=== PATIENT | female | born 1975 | race Caucasian/White ===

== ENCOUNTER 2022-07-02 18:07 | Emergency (ER) | payer OTHER ==
[~2022-07-02] VITALS: Ht 165.1 cm; Wt 92.2 kg
[2022-07-02 19:40] VITALS: BP 116/75
[2022-07-02] MEDS ORDERED: ACET-2247 PO (20:33)
== END 2022-07-02 21:04 | disposition home or self-care (01) ==
LOC: EDH 18:07
DX: S40.012A Contusion of left shoulder, initial encounter (principal); S80.02XA Contusion of left knee, initial encounter; E78.00 Pure hypercholesterolemia, unspecified; I10 Essential (primary) hypertension; Z86.73 Personal history of transient ischemic attack (TIA), and cerebral infarction without residual deficits; Z90.49 Acquired absence of other specified parts of digestive tract; Z88.6 Allergy status to analgesic agent; W01.0XXA Fall on same level from slipping, tripping and stumbling without subsequent striking against object, initial encounter; Y93.89 Activity, other specified; Y92.89 Other specified places as the place of occurrence of the external cause; Y99.8 Other external cause status
CPT/HCPCS: 73030; 73521

== ENCOUNTER 2023-05-20 23:03 | Emergency (ER) | payer OTHER ==
[~2023-05-20] VITALS: Ht 165.1 cm; Wt 89.4 kg
[~2023-05-20 23:03] MED LIST: ACET-2247 PO
[2023-05-20] MEDS ORDERED: DIAZEPAM 5 MG/ML 2 ML SYG IVP ONE (23:30)
[2023-05-21] MEDS ORDERED: CYCL10TA16 PO (00:59)
[2023-05-21 01:19] VITALS: BP 123/71; PULSE 81; RESP 16; O2SAT 97
== END 2023-05-21 02:59 | disposition home or self-care (01) ==
LOC: EDH 23:03
DX: S33.5XXA Sprain of ligaments of lumbar spine, initial encounter (principal); S23.3XXA Sprain of ligaments of thoracic spine, initial encounter; I10 Essential (primary) hypertension; Z86.73 Personal history of transient ischemic attack (TIA), and cerebral infarction without residual deficits; Z88.6 Allergy status to analgesic agent; Z90.49 Acquired absence of other specified parts of digestive tract; W18.39XA Other fall on same level, initial encounter; Y93.89 Activity, other specified; Y92.89 Other specified places as the place of occurrence of the external cause; Y99.8 Other external cause status
CPT/HCPCS: 99284; 70450; 96374; 71045; 72100; 72170; 72070; 72125; J3360

== ENCOUNTER → 2023-08-26 | Outpatient (CLI) | payer OTHER ==
[~2023-08-26] MED LIST changes: +CYCL10TA16 PO
[2023-08-26 12:30] LABS: CREATININE 0.9 mg/dL (0.5-1.5); POTASSIUM 4.2 mmol/L (3.5-5.1)
== END | disposition home or self-care (01) ==
LOC: LAB 11:50
PROVIDERS: ATTEND Internal Medicine Cardiovascular Disease
DX: I10 Essential (primary) hypertension (principal)
CPT/HCPCS: 36415; 80048

== ENCOUNTER → 2023-08-30 | Outpatient (CLI) | payer OTHER ==
[~2023-08-30] MED LIST changes: +IOHEXOL 350 MG/ML 100ML INFUS..BTL IV ONE; +METOPROLOL TARTRATE 1 MG/ML 5ML VIAL IV ONE
== END | disposition home or self-care (01) ==
LOC: RAH 10:48
PROVIDERS: ATTEND Internal Medicine Cardiovascular Disease
DX: I25.10 Atherosclerotic heart disease of native coronary artery without angina pectoris (principal); I25.9 Chronic ischemic heart disease, unspecified; I50.9 Heart failure, unspecified; M47.815 Spondylosis without myelopathy or radiculopathy, thoracolumbar region
CPT/HCPCS: 93306; 75574; J3490; Q9967

== ENCOUNTER → 2024-11-13 | Outpatient (CLI) | payer OTHER ==
[~2024-11-13] MED LIST changes: -IOHEXOL 350 MG/ML 100ML INFUS..BTL IV ONE; -METOPROLOL TARTRATE 1 MG/ML 5ML VIAL IV ONE
--- NOTE | 2024-11-13 12:54 | HMCIMG ---
KNEE/PATELLA 1-2VWS RT HISTORY: Pain COMPARISON: None TECHNIQUE: 2 images of right knee were obtained. FINDINGS: There is no acute displaced fracture or dislocation. Degenerative changes are seen. IMPRESSION: 1. Findings as described above.
== END | disposition home or self-care (01) ==
LOC: RAH 11:49
DX: M17.11 Unilateral primary osteoarthritis, right knee (principal); M25.561 Pain in right knee
CPT/HCPCS: 73560

== ENCOUNTER → 2024-12-29 | Outpatient (CLI) | payer OTHER ==
--- NOTE | 2024-12-29 09:23 | HMCIMG ---
Exam Type: US ABDOMINAL RUQ\E\LTD Clinical Information: ABN FINDINGS OF BLOOD CHEMISTRY Comparison: None Findings: The liver shows fatty infiltration and is enlarged, measuring 16.8 cm and is otherwise unremarkable. Doppler evaluation shows patent portal and hepatic veins. The gallbladder is surgically absent. No bile duct dilatation is noted. The common bile duct measures 5 mm. The right kidney measures 10.9 x 5.3 cm- it shows no hydronephrosis or calculi, masses or other abnormalities. The pancreas is suboptimally visualized. The aorta and inferior vena cava show no significant abnormalities. IMPRESSION: FATTY LIVER INFILTRATION AND HEPATOMEGALY. Status post cholecystectomy. OTHERWISE NORMAL RIGHT UPPER QUADRANT ABDOMINAL ULTRASOUND.
== END | disposition home or self-care (01) ==
LOC: RAH 07:07
DX: K76.0 Fatty (change of) liver, not elsewhere classified (principal); R16.0 Hepatomegaly, not elsewhere classified; R94.5 Abnormal results of liver function studies; R79.89 Other specified abnormal findings of blood chemistry; Z90.49 Acquired absence of other specified parts of digestive tract
CPT/HCPCS: 76705

== ENCOUNTER 2025-03-27 17:25 | Emergency (ER) | payer OTHER, MEDICARE ==
[~2025-03-27] VITALS: Ht 165.1 cm; Wt 90.7 kg
--- NOTE | 2025-03-27 18:00 | ERN ---
ED Note History of Present Illness Stated Complaint: FALL Chief Complaint: Mechanical Fall Time Seen by MD: 17:27 Time Seen by Midlevel: 17:27 Dictation: 49-year-old female who presents to the ED via EMS for evaluation after a mechanical fall. Per EMS patient already has left-sided deficits from previous CVA. Patient reports she was walking around with a walker when she tried turning and lost her balance and hit her head. Denies LOC, blood thinners. Patient presenting with laceration to the left ear. No nausea, vomiting, chest pain, shortness of breath. No preceding symptoms. Allergies: Coded Allergies: ibuprofen (Unverified Allergy, Intermediate, 07/02/22) naproxen (Unverified Allergy, Intermediate, 07/02/22) Home Meds Active Scripts Cyclobenzaprine HCl (Flexeril) 10 Mg Tab, 10 MG PO TID for muscle sstiffness, #30 TAB 2 Refills Prov:HENRY HUERTA Sr., MD 05/21/23 Acetaminophen (Tylenol) 325 Mg Tablet, 650 MG PO Q4HPRN, #30 TAB Prov:ELLEN BARBER MD 07/02/22 Past Medical History Past Medical History: CVA, Diabetes-Type II, High Cholesterol, Hypertension Additional Past Medical Hx: BLIND Surgical History: Other Surgical History Other: BRAIN SX Social History: Negative RN Note Reviewed/Agreed w/PFSH: Yes Review of System Dictation Constitutional: Negative for fever,chills, and weight loss Eyes: Negative for injury, pain,redness, and discharge ENT: Negative for injury,pain or swelling Cardiovascular: Negative for chest pain, palpitations, and edema Respiratory: Negative for shortness of breath, cough, and wheezing, Abdomen/GI: Negative for abdominal pain, nausea, vomiting, diarrhea, and constipation Back: Negative for injury and pain : Negative for injury, bleeding and discharge MS/Extremity: Negative for injury and deformity Skin: Negative for rash, and discoloration Neuro: Negative for headache, weakness, numbness, tingling, and seizure Psych: Negative for suicide ideation, homicidal ideation, and hallucinations Review of Systems: was completed Initial Vital Sign VS Vital Signs Date Time Temp Pulse Resp B/P (MAP) Pulse Ox O2 Delivery O2 Flow Rate FiO2 03/27/25 17:33 98.1 90 16 115/61 98 Room Air 0 03/27/25 17:44 21 Physical Exam Dictation General: awake, alert, NAD Head/Face: Normocephalic, atraumatic Eyes: PERRL, EOMI, vision at baseline ENT: oral cavity clear, TMs clear, no signs of infection Neck: Trachea midline, supple, no nuchal rigidity Cardiovascular: RRR, normal S1/S2, No MRGs, no JVD Respiratory: CTAB, no respiratory distress, No rales or wheezes Abdomen: Soft, non-tender, non-distended, normal bowel sounds, no guarding or rebound. Skin: Warm, dry, normal turgor, no rash, laceration to left ear MS/Extremity: Pulses equal, no cyanosis, neurovascular intact, FROM Neuro: COAx4, GCS 15, strength 5/5, CN 2-12 intact, normal cerebellar exam, normal gait, Psych: Normal behavior, mood, and affect normal Results (Laboratory/Radiology) Labs Reviewed?: Yes CT Scan Comment: No acute finding ED Course ED Course Orders Procedure Category Date Status Time Ct Head/Brain W/O CT 03/27/25 Resulted Contrast 17:36 Ct Cervical Spine W/O CT 03/27/25 Resulted Contrast 17:36 Morphine 4mg Syg PHA 03/27/25 Complete (Morphine 4mg Syg) 17:36 Ondansetron 4mg Inj PHA 03/27/25 Complete (Zofran 4mg Inj) 17:36 Tetanus,Diphtheria PHA 03/27/25 Complete Tox [Adult] (Diphther 20:00 Lidocaine Hcl 1% 20ml PHA 03/27/25 Complete Vial (Lidocaine Hc 19:47 Dermabond (Dermabond) PHA 03/27/25 Complete 20:35 Current Medications Medications (Trade) Dose Ordered Sig/Pedro Route PRN Reason Start Time Stop Time Status Last Admin Dose Admin Lidocaine HCl (Lidocaine HCl 1% 20ml Vial) 5 ml ONCE STAT INJ 03/27/25 19:47 03/27/25 19:49 DC 03/27/25 20:51 Morphine Sulfate (morPHINE 4MG SYG) 4 mg ONCE STAT IVP 03/27/25 17:36 03/27/25 17:40 DC 03/27/25 17:53 Octyl Cyanoacrylate (Dermabond) 1 each ONCE STAT TP 03/27/25 20:35 03/27/25 20:37 DC 03/27/25 20:51 Ondansetron HCl (zoFRAN 4MG INJ) 4 mg ONCE STAT IVP 03/27/25 17:36 03/27/25 17:40 DC 03/27/25 17:52 Tetanus/ Diphtheria Toxoids Adsorbed (DiphthERIA-teTANUS TOXOID [ADULT]/ DECAVAC) 0.5 ml ONCE ONCE IM 03/27/25 20:00 03/27/25 20:01 DC 03/27/25 20:15 Vital Signs Date Time Temp Pulse Resp B/P (MAP) Pulse Ox O2 Delivery O2 Flow Rate FiO2 03/27/25 19:00 98.1 74 18 125/79 98 Room Air* 0 21 03/27/25 17:44 74 18 128/78 94 Room Air* 0 21 03/27/25 17:33 98.1 90 16 115/61 98 Room Air 0 Medical Decision Making MDM MDM: Differential diagnosis: Need for hospitalization: Patient does meet criteria for hospitalization. Need for emergency major/minor surgery: No I independently interpreted the test that were performed, results were reviewed by me and considered findings on radiology if ordered. Medical management and examination interpretation discussions were had by me with other qualified healthcare professionals as indicated for the patient's care. Due to mechanism and fall and laceration of the left ear with positive head injury, CT scan was ordered due to patient complaining of left ear pain and headache. No LOC. No blood thinners. PATIENT WITH TWO SMALL LACERATIONS OF LEFT EARLOBE SECONDARY TO EOMS THAT SHE HAD ON. NO HEMATOMA NOTED TO THE HEAD. NO LOC. NEUROLOGICALLY INTACT. CT SCAN OF THE HEAD AND CERVICAL SPINE SHOWED NO ACUTE FINDING. PATIENT WAS UPDATED ON TETANUS AND LOCAL ANESTHESIA WAS PLACED AND I PLACED A TOTAL OF THREE SUTURES 10 LEFT EARLOBE WITH ADEQUATE BLOOD CONT ROL PATIENT TOLERATED THE PROCEDURE WELL. RECOMMENDED FOLLOW UP IN 7-10 DAYS FOR SUTURE REMOVAL. RETURN PRECAUTIONS DISCUSSED WITH PATIENT. PATIENT VERBALIZED UNDERSTANDING, AGREED WITH PLAN, AND ALL QUESTIONS WERE ANSWERED AT THIS TIME. Procedure Wound Location: face (left ear) Wound's Depth, Shape: flap Wound Explored: clean Betadine Prep?: Yes Anesthesia: 1% Lidocaine Wound Repaired With: sutures Suture Size/Type: 6:0 Number of Sutures: 3 Layer Closure?: No Sterile Dressing Applied?: No DX & DISP Disposition: Discharge Departure Impression: Primary Impression: Ground-level fall Additional Impression: Laceration of left ear Condition: Stable Additional Instructions: DISCHARGE HOME. REST. FOLLOW UP WITH PRIMARY CARE DR. IN 24 HOURS RETURN IN 7-10 DAYS FOR REMOVAL OF SUTURES OR FOLLOW UP WITH PCP. RETURN TO THE ER FOR ANY ACUTE CHANGE. PATIENT WAS ALSO ADVISED TO FOLLOW-UP WITH PRIMARY CARE PHYSICIAN IN 1 TO 2 DAYS FOR CONTINUED MONITORING. ALL INSTRUCTIONS WERE GIVEN TO LAYMANS TERM AND PATIENT AGREEABLE TO DISCHARGE AND PROPER FOLLOW-UP. Referrals: EDISON CARTER MD (PCP) I have reviewed the case, and I agree with, Diagnosis and Plan EDDIE EVERETT Mar 27, 2025 18:00
--- NOTE | 2025-03-27 18:39 | NUR ---
BRENDA ZAMARRIPA ([employer]STER AND POA) [phone].
--- NOTE | 2025-03-27 19:23 | HMCIMG ---
EXAM: CT Cervical Spine Without IV contrast. CLINICAL HISTORY: fall, head injury TECHNIQUE: Axial computed tomography images of the cervical spine without intravenous contrast. Sagittal and coronal reformatted images were generated. COMPARISON: 05/21/2023 FINDINGS: ALIGNMENT: Bony alignment is anatomic. DEGENERATIVE CHANGES: Stable mild degenerative changes in the lower cervical spine. SOFT TISSUES: The prevertebral soft tissues are within normal limits. BONES: No acute fracture or aggressive appearing osseous lesion. IMPRESSION: No fracture or dislocation of the cervical spine. Stable mild degenerative changes in the lower cervical spine. /[place]
--- NOTE | 2025-03-27 19:25 | HMCIMG ---
EXAM: CT Head Without IV contrast. CLINICAL HISTORY: fall, head injury TECHNIQUE: Axial computed tomography images of the head/brain without intravenous contrast. COMPARISON: 05/21/2023 FINDINGS: BRAIN: No acute bleed or infarct. Stable old infarcts with encephalomalacia in the right frontal lobe, right temporal lobe, right parietal lobe and left parietal lobe. VENTRICLES: No hydrocephalus. ORBITS: The orbits are unremarkable. SINUSES AND MASTOIDS: The paranasal sinuses and mastoid air cells are clear. BONES: No fracture. Stable postsurgical changes from a left temporal craniotomy. SOFT TISSUES: Unremarkable. MISCELLANEOUS: Stable chronic ischemic and atrophic changes. IMPRESSION: 1. No acute bleed or infarct. 2. Stable old infarcts with encephalomalacia in the right frontal lobe, right temporal lobe, right parietal lobe and left parietal lobe. 3. Stable chronic ischemic and atrophic changes. /[place]
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
[2025-03-27] MEDS: OCTYL 2-CYANOACRYLATE 1 EACH TP STA (20:51)
[2025-03-27] MEDS: LIDOCAINE HCL 1% 20 ML VIAL INJ STA (20:51)
[2025-03-27 21:30] VITALS: BP 131/64; PULSE 72; RESP 18; TEMP 98.1; O2SAT 98
== END 2025-03-27 21:40 | disposition home or self-care (01) ==
LOC: EDH 17:25
DX: S01.312A Laceration without foreign body of left ear, initial encounter (principal); E11.9 Type 2 diabetes mellitus without complications; E78.00 Pure hypercholesterolemia, unspecified; I10 Essential (primary) hypertension; Z86.73 Personal history of transient ischemic attack (TIA), and cerebral infarction without residual deficits; Z88.6 Allergy status to analgesic agent; W18.39XA Other fall on same level, initial encounter; Y93.01 Activity, walking, marching and hiking; Y92.89 Other specified places as the place of occurrence of the external cause; Y99.8 Other external cause status
CPT/HCPCS: 99285; 70450; 96374; 96375; 90714; 72125; 90471; 12011; J2405; J2270